=== PATIENT | female | born 1970 | race Caucasian/White ===

== ENCOUNTER 2022-07-01 08:09 | Outpatient (CLI) | payer BC | END 2022-07-01 08:10 | disposition home or self-care (01) | LOC: CSHMAMMO 08:09 | PROVIDERS: ATTEND Family Medicine | DX: Z12.31 Encounter for screening mammogram for malignant neoplasm of breast (principal) | CPT/HCPCS: 77063; 77067 ==

== ENCOUNTER 2023-01-29 10:53 | Day surgery (SDC) | payer BC ==
[2023-01-27 13:01] VITALS: BMI 37.8
[~2023-01-29 10:53] MED LIST: Bupivacaine 0.25% HCL 30 ML VIAL ONE; Neomycin-Polymyxin 1 ML AMP ONE
[2023-01-29] MEDS ORDERED: Bupivacaine PF 0.5% 30 ML VIAL ONE (12:22)
[2023-01-29] MEDS ORDERED: CEFAZOLIN 2 GM VIAL ONE (12:42)
[2023-01-29] MEDS ORDERED: Lidocaine 2% PF 5 ML VIAL ONE (12:58)
[2023-01-29] MEDS ORDERED: Dexamethasone 4 mg/ml Vial ONE (12:58)
[2023-01-29] MEDS ORDERED: Ondansetron PF 4 MG/2 ML Vial ONE (12:58)
[2023-01-29] MEDS ORDERED: Midazolam HCl 2 mg/2 ml Vial ONE (12:58)
[2023-01-29] MEDS ORDERED: PROPOFOL 20 ML ONE (12:58)
[2023-01-29] MEDS ORDERED: fentaNYL 50 mcg/mL 1 mL Vial ONE ×2 (12:58→13:20)
[2023-01-29] MEDS ORDERED: ePHEDrine Sulfate 50 MG/10 ML VIAL ONE (13:34)
[2023-01-29] MEDS ORDERED: Ketorolac Tromethamine 30 MG/ML VIAL ONE (14:32)
== END 2023-01-29 15:35 | disposition home or self-care (01) ==
LOC: CSHSDC 10:53
PROVIDERS: ATTEND Podiatrist Foot & Ankle Surgery
PROC: 0SPQ04Z Removal of Internal Fixation Device from Left Toe Phalangeal Joint, Open Approach (ICD-10-PCS; principal; 2023-01-29)
DX: T84.213A Breakdown (mechanical) of internal fixation device of bones of foot and toes, initial encounter (principal); I10 Essential (primary) hypertension; M20.42 Other hammer toe(s) (acquired), left foot; Y81.2 Prosthetic and other implants, materials and accessory general- and plastic-surgery devices associated with adverse incidents; Z79.899 Other long term (current) drug therapy; Z98.84 Bariatric surgery status
CPT/HCPCS: C1769; J1100; J1885; J2001; J2250; J2405; J2704; J3010; S0020

== ENCOUNTER 2023-09-19 12:54 | Outpatient (CLI) | payer BC | END 2023-09-19 12:55 | disposition home or self-care (01) | LOC: CSHMAMMO 12:54 | PROVIDERS: ATTEND Family Medicine | DX: Z12.31 Encounter for screening mammogram for malignant neoplasm of breast (principal) | CPT/HCPCS: 77063; 77067 ==